=== PATIENT | male | born 2000 | race Caucasian/White ===

== ENCOUNTER 2025-10-11 18:20 | Emergency (ER) | payer OTHER ==
[~2025-10-11] VITALS: Ht 182.9 cm; Wt 54.5 kg
[2025-10-11 18:39] LABS: BASOPHILS 0.5 % (0.2-1.2); EOSINOPHILS 0.5 % (0.8-7.0); LYMPHOCYTES 27.7 % (21.8-53.1); MCH 30.1 PG (25.7-32.2); MCHC 33.8 g/dL (32.3-36.5); MCV 89.0 fL (79.0-92.2); MONOCYTES 9.1 % (5.3-12.2); NEUTROPHILS 61.0 % (34.0-67.9); RBC 4.99 M/uL (4.63-6.08)
[2025-10-11] MEDS ORDERED: HYDROmorphone HCL 1 MG/ML SYR IV ONE ×2 (18:45→19:30)
[2025-10-11 19:01] LABS: ALT (SGPT) 40.0 U/L (14-59); AST (SGOT) 25.0 U/L (15-37); GLOMERULAR FILTRATION RATE,EST 77.0 mL/min (>60); PROTEIN, TOTAL 8.3 g/dL (6.4-8.2); UREA NITROGEN 16.0 mg/dL (7-18)
[2025-10-11 19:15] LABS: ABO O; ANTIBODY SCREEN NEGATIVE; RH POSITIVE
[2025-10-11] MEDS ORDERED: TRAMADOL HCL50 MG PO (22:29)
[2025-10-11] MEDS ORDERED: CEPHALEXIN500 M1 PO (22:29)
[2025-10-11] MEDS ORDERED: DIPHTH,PERTUSS(ACELL),TET VAC 0.5 ML SYRINGE IM ONE (22:30)
[2025-10-11] MEDS ORDERED: TRAMADOL HCL 50 MG HOME.PACK PO ONE (22:30)
[2025-10-11] MEDS ORDERED: CEPHALEXIN MONOHYDRATE 500 MG HOME.PACK PO ONE (22:30)
[2025-10-11 23:05] VITALS: BP 124/73
== END 2025-10-11 23:40 | disposition home or self-care (01) ==
LOC: ED 18:20
PROVIDERS: Emergency Medicine
DX: S41.111A Laceration without foreign body of right upper arm, initial encounter (principal); S61.210A Laceration without foreign body of right index finger without damage to nail, initial encounter; V00.131A Fall from skateboard, initial encounter
CPT/HCPCS: 12005; 36415; 73206; 80053; 85025; 86850; 86900; 86901; 90471; 90715; 96374; 96375; 96376; 99283-25; A9270; G0480; J1171; J2405; Q9967